=== PATIENT | female | born 1975 | race Caucasian/White ===

== ENCOUNTER → 2020-11-30 09:08 | Outpatient (CLI) | payer BC | END | disposition home or self-care (01) | LOC: D.US 09:00 | PROVIDERS: ATTEND Family Medicine | DX: R10.10 Upper abdominal pain, unspecified (principal) ==

== ENCOUNTER → 2020-12-10 08:08 | Outpatient (CLI) | payer BC | END | disposition home or self-care (01) | LOC: D.NM 08:08 | PROVIDERS: ATTEND Family Medicine | DX: R10.10 Upper abdominal pain, unspecified (principal) ==